=== PATIENT | male | born 2000 | race African-American/Black ===

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

== ENCOUNTER 2019-03-15 02:24 | Emergency (ER) | payer OTHER ==
[~2019-03-15] VITALS: Ht 167.6 cm; Wt 54.4 kg
[2019-03-15 02:37] VITALS: BP 121/76
[2019-03-15] MEDS ORDERED: CEFTRIAXONE 500 MG VIAL ONE (02:59)
[2019-03-15] MEDS ORDERED: DOXYCYCLINE HYCLATE (100 MG) 100 MG TABLET ONE (02:59)
[2019-03-15] MEDS ORDERED: LIDOCAINE /MPF 1% VIAL 5 ML VIAL ONE (03:00)
[2019-03-15] MEDS: CEFTRIAXONE 1 G VIAL IM ONE (03:13)
[2019-03-15] MEDS: DOXYCYCLINE HYCLATE (100 MG) 100 MG TABLET PO ONE (03:13)
--- NOTE | 2019-03-15 03:30 | NUR ---
Patient discharged to home in stable condition. Rx and Written and verbal after care instructions given. Patient verbalizes understanding of instruction.
== END 2019-03-15 03:41 | disposition home or self-care (01) ==
LOC: ER 02:33
DX: R39.89 Other symptoms and signs involving the genitourinary system (principal)
CPT/HCPCS: 96372; 99283; J0696; J3490

== ENCOUNTER 2019-09-15 23:09 | Emergency (ER) | payer OTHER ==
[~2019-09-15] VITALS: Ht 167.6 cm; Wt 55.3 kg
--- NOTE | 2019-09-15 23:37 | NUR ---
PT AAOX4. AMBULATORY WITH STEADY GAIT. BIBFATHER. C/O RLQ ABD PAIN STARTED 2229. -NVD. UPON ASSESSMENT, TENDERNESS UPON PALPATION, RR EVEN AND UNALBORED. PT STATED "IT'S MY GALL BLADDER, MY DOCTOR SAID I HAVE STONES." PALCED IN GOWN AND PLACED ON MONITOR. AWAITING MD FOR EVAL. VSS.
--- NOTE | 2019-09-15 23:39 | NUR ---
URINE SENT TO LAB
[2019-09-15] MEDS ORDERED: ONDANSETRON HCL/PF 4 MG/2 ML VIAL ONE (23:40)
[2019-09-15] MEDS ORDERED: MORPHINE SULFATE INJ 4 MG/ML DISP.SYRIN ONE (23:40)
[2019-09-15 23:44] LABS: APPEARANCE,URINE Clear (CLEAR); BILIRUBIN,URINE Negative (NEGATIVE); BLOOD, URINE Negative Ery/uL (NEGATIVE); COLOR,URINE Yellow (YELLOW); KETONES,URINE Negative (NEGATIVE); LEUKOCYTE ESTERASE ,URINE Negative (NEGATIVE); NITRITE, URINE Negative (NEGATIVE); PH,URINE 7.5 (5.0-8.0); PROTEIN,URINE Negative (NEGATIVE); UGLUCOSE Negative (NEGATIVE); UROBILINOGEN,URINE 0.2 EU/dL (0.2)
[2019-09-16] MEDS ORDERED: IV NS 0.9% 1,000 ML BAG IV ONE
[2019-09-16] MEDS ORDERED: MORPHINE SULFATE INJ 2 MG/ML DISP.SYRIN IV ONE
[2019-09-16] MEDS ORDERED: ONDANSETRON HCL/PF 4 MG/2 ML VIAL IVP ONE
[2019-09-16 00:01] LABS: BASOPHILS % (AUTO) 0.5 % (0.0-2.0); EOSINOPHILS % (AUTO) 2.7 % (0.0-6.0); HEMATOCRIT 46 % (39-51); HEMOGLOBIN 15.7 g/dL (13.5-17.5); LYMPHOCYTES # (AUTO) 2.7 /CMM (0.8-4.8); MEAN CORPUSCULAR HGB CONC 34 g/dl (31.0-36.0); MEAN CORPUSCULAR VOLUME 87 fL (80-96); MONOCYTES # (AUTO) 0.6 /CMM (0.1-1.30); MONOCYTES % (AUTO) 8.5 % (2.0-12.0); NEUTROPHILS # (AUTO) 3.6 /CMM (1.8-8.9); NEUTROPHILS % (AUTO) 50.3 % (43.0-81.0); PLATELET COUNT (AUTO) 238 /CMM (150-450); RED BLOOD CELL COUNT(AUTO) 5.29 MIL/uL (4.5-6.0); WHITE BLOOD COUNT (AUTO) 7.1 K/uL (4.3-11.0)
[2019-09-16 00:08] LABS: CALCIUM, SERUM 9.6 mg/dL (8.5-10.1)
--- NOTE | 2019-09-16 00:10 | NUR ---
brought back from ct
--- NOTE | 2019-09-16 00:10 | NUR ---
brought to ct
[2019-09-16 00:13] LABS: BILIRUBIN,DIRECT 0.1 mg/dL (0.0-0.2); BILIRUBIN,TOTAL 0.3 mg/dL (0.2-1.0); TOTAL PROTEIN, SERUM 7.4 g/dL (6.4-8.2)
--- NOTE | 2019-09-16 00:19 | NUR ---
Patient is resting comfortably in bed. Easily aroused. VSS.
--- NOTE | 2019-09-16 01:31 | NUR ---
PT AMBULATED TO RESTROOM. VSS.
--- NOTE | 2019-09-16 01:48 | NUR ---
IV removed. Catheter intact and site benign. Pressure and 4x4 applied to site. No bleeding noted.
--- NOTE | 2019-09-16 01:52 | NUR ---
Patient discharged to home in stable condition. Written and verbal after care instructions given. Patient verbalizes understanding of instruction and RX. vss. Pt ambualted with steady gait.
[2019-09-16 01:55] VITALS: BP 122/74
== END 2019-09-16 01:56 | disposition home or self-care (01) ==
LOC: ER 23:09
DX: R10.31 Right lower quadrant pain (principal)
CPT/HCPCS: 36415; 74176; 80048; 80076; 81001; 83690; 85025; 96374; 96375; 99284; J2270; J2405; J7030; 81000-TC

== ENCOUNTER 2023-11-12 10:24 | Emergency (ER) | payer OTHER ==
[~2023-11-12] VITALS: Ht 170.2 cm; Wt 70.8 kg
[2023-11-12] MEDS ORDERED: HYDR25SU33 RC (12:20)
[2023-11-12 12:50] VITALS: BP 128/94; TEMP 98.2; O2SAT 99
== END 2023-11-12 12:51 | disposition home or self-care (01) ==
LOC: ER 10:48
DX: K64.8 Other hemorrhoids (principal); F10.10 Alcohol abuse, uncomplicated; Y90.9 Presence of alcohol in blood, level not specified
CPT/HCPCS: 99283; C1769